=== PATIENT | female | born 1985 | race Hispanic/Latino ===

== ENCOUNTER 2020-02-07 12:47 | Emergency (ER) | payer SELFPAY ==
[~2020-02-07 12:47] MED LIST: Calcium Chloride 1 GM/10 ML Abboject SYRINGE ONE; EPINEPHrine 1 MG/10 ML Abboject SYRINGE ONE; EPINEPHrine 1 MG/ML AMP ONE; Sodium Bicarb 50 MEQ/50 ML Abboject 8.4% SYRINGE ONE
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
== END 2020-02-07 13:15 | disposition expired ==
LOC: EDBD 12:47 → ERS 12:47
DX: I46.9 Cardiac arrest, cause unspecified (principal); J96.90 Respiratory failure, unspecified, unspecified whether with hypoxia or hypercapnia; V49.9XXA Car occupant (driver) (passenger) injured in unspecified traffic accident, initial encounter
CPT/HCPCS: 36430; 36556; 51702; 86850; 86900; 86901; 92950; 94760; 96374; 96375; G0390; J0171; P9016